=== PATIENT | female | born 1985 | race American Indian/Alaskan Native ===

== ENCOUNTER 2017-06-21 21:12 | Inpatient (IN) | payer MEDICAID, OTHER ==
[2017-06-21 21:13] VITALS: BMI 33.2
--- NOTE | 2017-06-21 22:52 | C.PDOC ---
History Of Present Illness Patient presents to the ER with a complaint of feeling depressed with suicidal ideation. She states that she has no plan. Patient also states she is homeless and notes she recently gave at the long term about 6 weeks ago. Denies physical complaints at this time. Time Seen by Provider: 06/21/17 22:51 Chief Complaint (Nursing): Psychiatric Evaluation History Per: Patient History/Exam Limitations: no limitations Onset/Duration Of Symptoms: Days Current Symptoms Are (Timing): Still Present Suicide/Self Injury Attempted (Context): None Modifying Factor(s): None Severity: None Pain Scale Rating Of: 0 Associated Symptoms: Depression, Suicidal Thoughts. denies: Suicidal Plan Involuntary Hold By: None Recent travel outside of the [place]: No Additional History Per: EMS Past Medical History Reviewed: Historical Data, Nursing Documentation, Vital Signs Vital Signs: Last Vital Signs Temp 98.5 F 06/21/17 21:26 Pulse 100 H 06/21/17 21:26 Resp 20 06/21/17 21:26 BP 144/93 H 06/21/17 21:26 Pulse Ox 100 06/21/17 23:58 - Medical History PMH: Anemia, Anxiety, Asthma, Bipolar Disorder, HTN (Unknown), Schizophrenia Comment Only: Depression (Unknown) Surgical History: - [facility] Procedures CERVICAL LES DESTRUC NEC (04/28/02) INDIVIDUAL PSYCHOTHERAPY, COGNITIVE-BEHAVIORAL (05/07/17) INJECT/INFUSE NEC (07/14/14) MEDICATION MANAGEMENT (07/23/16) PSYCHIA INTERV/EVAL NEC (05/27/14) VACUUM EXT DEL W EPISIOT (11/04/01) Family History: States: No Known Family Hx - Social History Hx Tobacco Use: Yes Hx Alcohol Use: Yes Hx Substance Use: Yes - Immunization History Hx Tetanus Toxoid Vaccination: No Hx Influenza Vaccination: No Hx Pneumococcal Vaccination: No Review Of Systems Constitutional: Negative for: Fever, Chills Cardiovascular: Negative for: Chest Pain Gastrointestinal: Negative for: Nausea, Vomiting, Diarrhea Genitourinary: Negative for: Dysuria Musculoskeletal: Negative for: Back Pain Skin: Negative for: Rash Neurological: Negative for: Weakness Psych: Positive for: Depression, Suicidal ideation Physical Exam - Physical Exam Appears: Non-toxic, No Acute Distress Skin: Warm, Dry Head: Normacephalic Eye(s): bilateral: Normal Inspection Oral Mucosa: Moist Neck: Supple Chest: Symmetrical, No Tenderness Cardiovascular: Rhythm Regular Respiratory: No Rales, No Rhonchi, No Wheezing Gastrointestinal/Abdominal: Soft, No Tenderness Extremity: No Tenderness Extremity: Bilateral: Atraumatic Neurological/Psych: Oriented x3 Gait: Steady ED Course And Treatment - Laboratory Results Result Diagrams: 06/21/17 22:50 06/21/17 22:50 O2 Sat by Pulse Oximetry: 100 Progress Note: Blood work and urinalysis ordered. Crisis notified. Disposition Discussed With Dr.: Ez Lazar Comment: accepted the pt on his service and took over the care at 11:49 PM Counseled Patient/Family Regarding: Studies Performed, Diagnosis - Disposition Disposition: HOSPITALIZED Disposition Time: 22:52 Condition: FAIR - POA Present On Arrival: None - Clinical Impression Clinical Impression: Schizoaffective disorder - Scribe Statement The provider has reviewed the documentation as recorded by the Scribe Sterling Walton All medical record entries made by the Scribe were at my direction and personally dictated by me. I have reviewed the chart and agree that the record accurately reflects my personal performance of the history, physical exam, medical decision making, and the department course for this patient. I have also personally directed, reviewed, and agree with the discharge instructions and disposition. Decision To Admit - Pt Status Changed To: Hospital Disposition Of: Inpatient - Admit Certification Admit to Inpatient:: After my assessment, the patient will require hospitalization for at least two midnights. This is because of the severity of symptoms shown, intensity of services needed, and/or the medical risk in this patient being treated as an outpatient. - InPatient: Physician Admission Certification: I certify that this patient requires 2 or more midnights of care for the following reason:: After my assessment, the patient will require hospitalization for at least two midnights. This is because of the severity of symptoms shown, intensity of services needed, and/or the medical risk in this patient being treated as an outpatient. - . Bed Request Type: Psychiatry Admitting Physician: Ez Lazar Patient Diagnosis: Schizoaffective disorder
[2017-06-21 22:53] LABS: BASO # 0.1 K/uL (0.0-0.2); BASO % 0.6 % (0.0-2.0); EOS # 0.1 K/uL (0.0-0.7); EOS % 1.2 % (0.0-4.0); HEMATOCRIT 29.1 % (34.0-47.0); LYMPH # 1.7 K/uL (1.0-4.3); LYMPH % 17.9 % (20.0-40.0); MEAN CELL VOLUME 72.5 fL (81.0-99.0); MEAN CORPUSCULAR HEMOGLOBIN 22.9 pg (27.0-31.0); MEAN CORPUSCULAR HGB CONC 31.5 g/dL (33.0-37.0); MEAN PLATELET VOLUME 8.4 fL (7.2-11.7); MONO # 0.6 K/uL (0.0-0.8); MONO % 6.2 % (0.0-10.0); NRBC % 0.1 % (0.0-2.0); RED CELL DISTRIBUTION WIDTH 19.5 % (11.5-14.5); WHITE BLOOD COUNT 9.4 K/uL (4.8-10.8)
[2017-06-21 23:01] LABS: CHLORIDE 102 mmol/L (98-107)
[2017-06-21 23:02] LABS: POTASSIUM 3.5 mmol/L (3.6-5.2); SODIUM 138 mmol/L (132-148)
[2017-06-21 23:03] LABS: RBC URINE 1 /hpf (0-3); URINE BILIRUBIN NEGATIVE (NEGATIVE); URINE BLOOD NEGATIVE (NEGATIVE); URINE COLOR Yellow (YELLOW); URINE GLUCOSE (UA) NORMAL (Normal); URINE KETONE NEGATIVE (NEGATIVE); URINE LEUKOCYTE ESTERASE TRACE Leu/uL (Negative); URINE PROTEIN NEGATIVE (NEGATIVE); WBC URINE 14 /hpf (0-5)
[2017-06-21 23:04] LABS: GFR AFRICAN-AMERICAN > 60
[2017-06-21 23:05] LABS: ALB/GLOB RATIO 1.3 (1.0-2.1); ALKALINE PHOSPHATASE 55 U/L (38-126); ALT/SGPT 45 U/L (9-52); AST/SGOT 32 U/L (14-36); BILIRUBIN,TOTAL 0.4 mg/dL (0.2-1.3); BLOOD UREA NITROGEN 10 mg/dL (7-17); CARBON DIOXIDE 22 mmol/L (22-30); GLUCOSE,RANDOM 86 mg/dL (65-105); TOTAL PROTEIN 6.8 g/dL (6.3-8.3)
[2017-06-21 23:06] LABS: ALCOHOL SERUM < 10 mg/dl (0-10)
--- NOTE | 2017-06-22 00:27 | PCM.BM ---
<Ila Calloway - Last Filed: 06/22/17 11:02> Family Contact Family involvement: Famliy/SO not involved - Goals for Treatment Patient goals for treatment: "I don't know." Discharge/Continuing Care - Education Needs Education Needs: Patient Medication, Patient Coping Skills, Patient Placement options, Patient Community resources - Discharge Discharge Criteria: Tolerates medication w/o severe side effects, Free of Suicidal thoughts, No longer exhibiting s/s of withdrawal, Reduction of target symptoms Discharge to:: Longterm - Treatment Team Participation Discussed with Family/SO: No Was Patient/Family/SO present at Treatment Team Meeting: Yes <Chaz Barry - Last Filed: 06/22/17 11:05> - Diagnosis (1) Schizoaffective disorder, depressive type Status: Acute Interventions: Medications [facility] for abstinence CBT 06/22/17 11:06 <Sanford Friedman - Last Filed: 07/03/17 04:37> Treatment Plan Problems - Problems identified on initial assessmt Depression Date Initiated: 06/22/17 Time Initiated: 00:24 Assessment reference: NA Status: Active Suicidal Ideation Date Initiated: 06/22/17 Time Initiated: 00:24 Assessment reference: NA Status: Active Comment: Suicidal Ideation w/o plan Auditory & Visual Hallucination Date Initiated: 06/22/17 Time Initiated: 00:28 Assessment reference: NA Status: Active Treatment assets and liabiliti Patient Assests: cooperative, self-reliant, ADL independent, physically healthy , good support system Patient Liabilities: financial problems, substance abuse - Milieu Protocol Maintain good personal hygiene: daily Encourage regular showers, daily Remind patient to perform daily oral care, daily Assist patient to perform ADL's Maintain personal safety: every shift Educate patient to report safety concerns to staff, every shift Monitor environment for contraband/sharps Medication safety: Monitor for expected outcome, potential side effects: every shift, Assess barriers to learning: every shift, Assess readiness for medication education: every shift
--- NOTE | 2017-06-22 17:59 | PCM.PSYCH ---
Initial Psychiatric Evaluation - Initial Psychiatric Evaluation Type of Admission: Voluntary Legal Status: Capacity Chief Complaint (in patient's own words): One day before I started having suicidal ideations without plan. History of Present Illness and Precipitating Events: Patient is a 31 years old, single, unemployed, -[place] female, with history of schizoaffective disorder depressive type, follow-up at [facility] was admitted due to worsening symptoms of depression and suicidal ideations without plan. Patient reported feeling depressed, with decreased sleep, feeling tired, no change in appetite but lost about 200 pounds over 2 months. Denied any current suicidal ideations or homicidal ideations. Denied any suicidal attempts in the past. Patient reported had suicidal ideations before admitting to the hospital. Also reported hearing voices, couldn't elaborate about voices. Sees things. Patient sees shadows. Also believed someone is after her. Denied any manic symptoms. History of more than 5 previous inpatient psychiatric admissions. Patient reports that she drinks 1 beer daily. Last drink reported yesterday. Denied using any other drugs including cocaine, cannabis or heroin. Smokes 3 cigarettes daily. Refuses to take nicotine patch. Patient was born in [place], has ninth grade of education. Not working. Never . Has one, one month for child. Patient's sister has custody of patient's son. Lives alone. Height is 5 feet 5 inches and weight is 180 pounds. Current Medications: Active Medications Generic Name Dose Route Start Last Admin Trade Name Freq PRN Reason Stop Dose Admin Benztropine Mesylate 1 mg 06/22/17 18:00 06/22/17 17:52 Cogentin PO 1 mg BID KONG Administration Haloperidol 10 mg 06/22/17 18:00 06/22/17 17:52 Haldol PO 10 mg BID KONG Administration Haloperidol 5 mg 06/22/17 13:11 Haldol PO Q6 PRN Agitation Hydroxyzine HCl 25 mg 06/22/17 17:53 Atarax PO Q6 PRN Anxiety Mirtazapine 15 mg 06/22/17 22:00 Remeron PO HS KONG Trazodone HCl 100 mg 06/22/17 00:49 06/22/17 00:58 Desyrel PO 100 mg HS PRN Administration Sleep Past Psychiatric History - Past Psychiatric History Previous Treatment History: Inpatient History of Abuse: None reported History of ETOH/Drug Use: See HPI History of Family Illness: Reported her mother has history of depression. Also reported many of her cousins use cannabis. Pertinent Medical Hx (Current Medical&Sleep Prob, Allergies): Allergies Allergy/AdvReac Type Severity Reaction Status Date / Time No Known Allergies Allergy Verified 05/07/17 02:39 Hypertension Review of Systems - Psychiatric Psychiatric: Depression Mental Status Examination - Personal Presentation Personal Presentation: Looks stated age - Affect Affect: Depressed - Motor Activity Motor Activity: Calm - Reliability in Providing Information Reliability in Providing Information: Fair - Speech Speech: Organized - Mood Mood: Depressed - Formal Thought Process Formal Thought Process: No Impairment - Hallucinations/Delusions Hallucinations: Other (None reported) Delusions: Other - Obsessions/Compulsions Obsessions: None Compulsions: None - Cognitive Functions Orientation: Person, Place, Situation, Time Sensorium: Alert Attention/Concentration: Attentive Abstract Thinking: [place] Estimate of Intelligence: Average Judgement: Intact, as evidence by: Insight regarding need for hospitalization Memory: Recent intact, as evidence by: 3/3 object recall, Remote intact, as evidenced by: Ability to recall historical events - Risk Risk: Diminished functioning - Strength & Assets Inventory Strength & Assets Inventory: Family support, Cooperative - Limitations Limitations: Other DSM 5 DX - DSM 5 DSM 5 Diagnosis: Schizoaffective disorder depressive type - Recommended/Plan of Treatment Treatment Recommendations and Plan of Treatment: Patient education Supportive therapy Will start Haldol as patient was taking from [facility] We'll start mirtazapine. Patient was taking this medication before. Other when necessary medications. Projected ELOS: 8-10 days - Smoking Cessation Smoking Cessation Initiated: No Reason for not providing: Patient refused
--- NOTE | 2017-06-23 18:41 | PCM.PYCHPN ---
Psychiatric Progress Note - Psychiatric Progress Note Patient seen today, length of contact: 15 minutes Patient Chief Complaint: "I'm hearing voices" Problems Identified/Issues Discussed: Patient was seen. Chart was reviewed important content noted. Nurse input received that she is still suspicious and internally preoccupied. Patient reported AH but unable to express further. She appeared internally preoccupied. Patient stated that he had trouble in slept. He stated that he is eating well. Patient denies any depressive symptoms. Denies suicidal or homicidal ideations. Patient does not report visual hallucinations. Diagnostic Results: Schizoaffective disorder Medication Change: No Medical Record Reviewed: Yes Mental Status Examination - Cognitive Function Orientation: Person, Place, Situation, Time Memory: Intact Attention: Poor Concentration: Poor Association: Loose Fund of Knowledge: WNL Decription of patient's judgement and insights: limited/limited - Mood Mood: Depressed - Affect Affect: Blunted - Speech Speech: Soft - Formal Thought Process Formal Thought Process: No Impairment Psychotic Thoughts and Behaviors: AH, Paranoid delusions - Suicidal Ideation Suicidal Ideation: No - Homicidal Ideation Homicidal Ideation: No Goal/Treatment Plan - Goal/Treatment Plan Need for Continued Stay: Discharge may exacerbated symptoms Progress Toward Problem(s) and Goals/Treatment Plan: Continue current treatment therapy in [facility] Meds benefits, s/e discussed with the pt and pt verbalized understanding and agree with the treatment plan. Encouraged to attend groups pt needs to stabilized on meds Estimated Date of D/C: 06/29/17
--- NOTE | 2017-06-24 18:36 | PCM.PYCHPN ---
Psychiatric Progress Note - Psychiatric Progress Note Patient seen today, length of contact: 15 minutes Patient Chief Complaint: "I'm feeling better" Problems Identified/Issues Discussed: Patient was seen. Chart was reviewed important content noted. Nurse input received that pt is compliant with meds. Pt is still suspicious and internally preoccupied. Patient reported AH telling her to do good things. She appeared internally preoccupied. Patient stated that he had trouble in slept. She stated that she is eating well. Patient reported depressed mood, but denies suicidal or homicidal ideation. Patient does not report visual hallucinations. Pt reported LD and MR history Diagnostic Results: Schizoaffective disorder Medication Change: No Medical Record Reviewed: Yes Mental Status Examination - Cognitive Function Orientation: Person, Place, Situation, Time Memory: Intact Attention: Poor Concentration: Poor Association: Loose Fund of Knowledge: Poor Decription of patient's judgement and insights: limited/limited - Mood Mood: Depressed - Affect Affect: Blunted - Speech Speech: Soft - Formal Thought Process Formal Thought Process: No Impairment Psychotic Thoughts and Behaviors: AH - Suicidal Ideation Suicidal Ideation: No - Homicidal Ideation Homicidal Ideation: No Goal/Treatment Plan - Goal/Treatment Plan Need for Continued Stay: Discharge may exacerbated symptoms Progress Toward Problem(s) and Goals/Treatment Plan: Continue current treatment therapy in [facility] Meds benefits, s/e discussed with the pt and pt verbalized understanding and agree with the treatment plan. Encouraged to attend groups pt needs to stabilized on meds Estimated Date of D/C: 06/29/17
--- NOTE | 2017-06-25 16:08 | PCM.PYCHPN ---
Psychiatric Progress Note - Psychiatric Progress Note Patient seen today, length of contact: 15 minutes Patient Chief Complaint: Not feeling better. I still hear voices. Problems Identified/Issues Discussed: Patient seen. Chart reviewed. Case discussed with staff. Issues related to illness and treatment were discussed with the patient. Reported compliant with treatment with no adverse affects. Tolerating treatment very well. Patient states supporting auditory hallucinations noncommand type. Appeared internally preoccupied. Will switch Haldol to Prolixin 10 mg at bedtime. At the time of evaluation, patient was awake alert oriented 3, had no delusions , no visual hallucinations but had auditory hallucinations, couldn't elaborate further, no suicidal ideations or homicidal ideations. Medical Problems: None reported Diagnostic Results: Reviewed DSM 5 Symptoms Update: Some improvement with treatment Medication Change: Yes (Discontinued Haldol. Started Prolixin 10 mg at bedtime.) Medical Record Reviewed: Yes Mental Status Examination - Cognitive Function Orientation: Person, Place, Situation, Time Memory: Intact Attention: WNL Concentration: WNL Association: WNL Fund of Knowledge: [facility] Decription of patient's judgement and insights: Fair - Mood Mood: Depressed - Affect Affect: Blunted - Speech Speech: Appropriate - Formal Thought Process Formal Thought Process: Hallucinations - Suicidal Ideation Suicidal Ideation: No - Homicidal Ideation Homicidal Ideation: No Goal/Treatment Plan - Goal/Treatment Plan Need for Continued Stay: Remain at risks for inpatient hospitalization, Discharge may exacerbated symptoms, Severe functional impairment Progress Toward Problem(s) and Goals/Treatment Plan: Patient education Supportive therapy Discontinued Haldol. Start Prolixin 10 mg at bedtime. Continue rest of the treatment as before. Estimated Date of D/C: 06/29/17 - Smoking Cessation Smoking Cessation Initiated: No
--- NOTE | 2017-06-26 18:14 | PCM.PYCHPN ---
Psychiatric Progress Note - Psychiatric Progress Note Patient seen today, length of contact: 15 minutes Patient Chief Complaint: I'm feeling better with the treatment Problems Identified/Issues Discussed: Patient seen. Chart reviewed. Case discussed with staff. Issues related to illness and treatment were discussed with the patient. Reported compliant with treatment with no adverse affects. Tolerating treatment very well. Patient reported feeling better with much less hallucinations. At the time of evaluation, patient was awake alert oriented 3, had no delusions , no visual hallucinations but had auditory hallucinations, couldn't elaborate further, no suicidal ideations or homicidal ideations. Medical Problems: None reported Diagnostic Results: Reviewed DSM 5 Symptoms Update: Improving with treatment Medication Change: No Medical Record Reviewed: Yes Mental Status Examination - Cognitive Function Orientation: Person, Place, Situation, Time Memory: Intact Attention: WNL Concentration: WNL Association: WNL Fund of Knowledge: [facility] Decription of patient's judgement and insights: Fair - Mood Mood: Depressed (Less than before) - Affect Affect: Blunted - Speech Speech: Appropriate - Formal Thought Process Formal Thought Process: Hallucinations - Suicidal Ideation Suicidal Ideation: No - Homicidal Ideation Homicidal Ideation: No Goal/Treatment Plan - Goal/Treatment Plan Need for Continued Stay: Remain at risks for inpatient hospitalization, Discharge may exacerbated symptoms, Severe functional impairment Progress Toward Problem(s) and Goals/Treatment Plan: Patient education Supportive therapy Continue treatment as before Estimated Date of D/C: 06/29/17 - Smoking Cessation Smoking Cessation Initiated: No
--- NOTE | 2017-06-27 15:28 | PCM.PYCHPN ---
Psychiatric Progress Note - Psychiatric Progress Note Patient seen today, length of contact: 15 minutes Patient Chief Complaint: I'm feeling better with the treatment Problems Identified/Issues Discussed: Patient seen. Chart reviewed. Case discussed with staff. Issues related to illness and treatment were discussed with the patient. Reported compliant with treatment with no adverse affects. Tolerating treatment very well. Patient reported feeling better. No hallucinations. At the time of evaluation, patient was awake alert oriented 3, had no delusions , no visual hallucinations but had auditory hallucinations, couldn't elaborate further, no suicidal ideations or homicidal ideations. Medical Problems: None reported Diagnostic Results: Reviewed DSM 5 Symptoms Update: Improvement with treatment Medication Change: No Medical Record Reviewed: Yes Mental Status Examination - Cognitive Function Orientation: Person, Place, Situation, Time Memory: Intact Attention: WNL Concentration: WNL Association: WN Fund of Knowledge: [facility] Decription of patient's judgement and insights: Fair - Mood Mood: Depressed (Much less than before) - Affect Affect: Depressed - Speech Speech: Appropriate - Formal Thought Process Formal Thought Process: No Impairment - Suicidal Ideation Suicidal Ideation: No - Homicidal Ideation Homicidal Ideation: No Goal/Treatment Plan - Goal/Treatment Plan Need for Continued Stay: Remain at risks for inpatient hospitalization, Discharge may exacerbated symptoms, Severe functional impairment Progress Toward Problem(s) and Goals/Treatment Plan: Patient education Supportive therapy Continue treatment as before Estimated Date of D/C: 06/29/17 - Smoking Cessation Smoking Cessation Initiated: No
[2017-06-27] MEDS ORDERED: Bisacodyl 5mg EC Tab PO PRN ×2 (20:10→20:17)
--- NOTE | 2017-06-28 14:40 | PCM.PYCHPN ---
Psychiatric Progress Note - Psychiatric Progress Note Patient seen today, length of contact: 15 minutes Patient Chief Complaint: I'm feeling better with the treatment. He is less voices. Problems Identified/Issues Discussed: Patient seen. Chart reviewed. Case discussed with staff. Issues related to illness and treatment were discussed with the patient. Reported compliant with treatment with no adverse affects. Tolerating treatment very well. Patient reported feeling better. Less hallucination, better mood. At the time of evaluation, patient was awake alert oriented 3, had no delusions , no visual hallucinations but had auditory hallucinations, couldn't elaborate further, no suicidal ideations or homicidal ideations. Medical Problems: None reported Diagnostic Results: Reviewed DSM 5 Symptoms Update: Improving with treatment Medication Change: Yes (Dose of mirtazapine increased to 30 mg at bedtime) Medical Record Reviewed: Yes Mental Status Examination - Cognitive Function Orientation: Person, Place, Situation, Time Memory: Intact Attention: WNL Concentration: WNL Association: WNL Fund of Knowledge: WNL Decription of patient's judgement and insights: Fair - Mood Mood: Anxious - Affect Affect: Constricted - Speech Speech: Appropriate - Formal Thought Process Formal Thought Process: Hallucinations - Suicidal Ideation Suicidal Ideation: No - Homicidal Ideation Homicidal Ideation: No Goal/Treatment Plan - Goal/Treatment Plan Need for Continued Stay: Remain at risks for inpatient hospitalization, Discharge may exacerbated symptoms, Severe functional impairment Progress Toward Problem(s) and Goals/Treatment Plan: Patient education Supportive therapy Dose of mirtazapine increased to 30 mg Continue rest of the treatment as before Estimated Date of D/C: 07/02/17 - Smoking Cessation Smoking Cessation Initiated: No
--- NOTE | 2017-06-29 10:19 | PCM.BM ---
<ElliIla - Last Filed: 06/29/17 10:18> Treatment Plan Problems - Problems identified on initial assessmt Depression Date Initiated: 06/22/17 Time Initiated: 00:24 Assessment reference: NA Status: Active Suicidal Ideation Date Initiated: 06/22/17 Time Initiated: 00:24 Assessment reference: NA Status: Active Comment: Suicidal Ideation w/o plan Substance Abuse Date Initiated: 06/22/17 Time Initiated: 00:25 Assessment reference: NA Status: Active Auditory & Visual Hallucination Date Initiated: 06/22/17 Time Initiated: 00:28 Assessment reference: NA Status: Active Treatment assets and liabiliti Patient Assests: cooperative, self-reliant, ADL independent, physically healthy , good support system Patient Liabilities: financial problems, substance abuse - Milieu Protocol Maintain good personal hygiene: daily Encourage regular showers, daily Remind patient to perform daily oral care, daily Assist patient to perform ADL's Maintain personal safety: every shift Educate patient to report safety concerns to staff, every shift Monitor environment for contraband/sharps Medication safety: Monitor for expected outcome, potential side effects: every shift, Assess barriers to learning: every shift, Assess readiness for medication education: every shift Milieu Narrative: Patient education Supportive therapy Dose of mirtazapine increased to 30 mg Continue rest of the treatment as before Family Contact Family involvement: Famliy/SO not involved - Goals for Treatment Patient goals for treatment: "I don't know." Discharge/Continuing Care - Education Needs Education Needs: Patient Medication, Patient Coping Skills, Patient Placement options, Patient Community resources - Discharge Discharge Criteria: Tolerates medication w/o severe side effects, Free of Suicidal thoughts, No longer exhibiting s/s of withdrawal, Reduction of target symptoms Discharge to:: Longterm - Treatment Team Participation Patient/Family/SO Statement: Patient education Supportive therapy Dose of mirtazapine increased to 30 mg Continue rest of the treatment as before Discussed with Family/SO: No Was Patient/Family/SO present at Treatment Team Meeting: Yes Treatment Plan Review Patient participation: No Family/SO/Caregiver participation: No - Problem Depression Date Initiated: 06/29/17 Time Initiated: 10:19 Progress toward outcomes: unchanged Suicidal Ideation Date Initiated: 06/29/17 Time Initiated: 10:19 Progress toward outcomes: unchanged Substance Abuse Date Initiated: 06/29/17 Time Initiated: 10:19 Progress toward outcomes: improved Auditory & Visual Hallucination Date Initiated: 06/29/17 Time Initiated: 10:19 Progress toward outcomes: unchanged <Hetal Coleman - Last Filed: 06/29/17 15:04> Treatment Plan Review - Discharge / Continuing Care Discharge to:: Home Behavioral Health Services: Partial hospital Health Needs: Medications/Rx, Educational <Chaz Barry - Last Filed: 06/29/17 18:32> - Diagnosis (1) Schizoaffective disorder, depressive type Status: Acute Interventions: Medications ND for abstinence CBT 06/29/17 18:32
--- NOTE | 2017-06-29 18:38 | PCM.PYCHPN ---
Psychiatric Progress Note - Psychiatric Progress Note Patient seen today, length of contact: 15 minutes Patient Chief Complaint: I'm still hearing voices. Problems Identified/Issues Discussed: Patient seen. Chart reviewed. Case discussed with staff. Issues related to illness and treatment were discussed with the patient. Reported compliant with treatment with no adverse affects. Tolerating treatment very well. Patient reported that she still hears voices and also depressed. Patient is not comfortable with fluphenazine and wants to use Haldol. Patient repeatedly insisted that Haldol helped her better. Education provided to the patient about medication. Still patient wants Haldol. Will start haloperidol 10 mg twice a day and will discontinue fluphenazine. We'll also increase the dose of mirtazapine to 45 mg from 30 mg at bedtime. Patient agreed with the changes. At the time of evaluation, patient was awake alert oriented 3, had no delusions , no visual hallucinations but had auditory hallucinations, couldn't elaborate further, no suicidal ideations or homicidal ideations. Medical Problems: None reported Diagnostic Results: Reviewed DSM 5 Symptoms Update: Some improvement with treatment Medication Change: Yes (Started haloperidol, increase the dose of mirtazapine, discontinued fluphen) Medical Record Reviewed: Yes Mental Status Examination - Cognitive Function Orientation: Person, Place, Situation, Time Memory: Intact Attention: WNL Concentration: WNL Association: WNL Fund of Knowledge: [facility] Decription of patient's judgement and insights: Yefri - Mood Mood: Anxious - Affect Affect: Constricted - Speech Speech: Appropriate - Formal Thought Process Formal Thought Process: Hallucinations - Suicidal Ideation Suicidal Ideation: No - Homicidal Ideation Homicidal Ideation: No Goal/Treatment Plan - Goal/Treatment Plan Need for Continued Stay: Remain at risks for inpatient hospitalization, Discharge may exacerbated symptoms, Severe functional impairment Progress Toward Problem(s) and Goals/Treatment Plan: Patient education Supportive therapy Increased dose of mirtazapine to 45 mg. Discontinued fluphenazine. Start haloperidol 10 mg twice a day. Estimated Date of D/C: 07/02/17 - Smoking Cessation Smoking Cessation Initiated: No
--- NOTE | 2017-06-30 11:49 | PCM.PYCHPN ---
Psychiatric Progress Note - Psychiatric Progress Note Patient seen today, length of contact: 15 minutes Patient Chief Complaint: "I hear voices sometimes" Problems Identified/Issues Discussed: The pt is seen, chart reviewed, case discussed with staff. The pt is compliant with medications and reports no side-effects. Symptoms are improving but needs more time to stabilize. After care discussed, support and psychoeducation given. Pt needs depot medication, will do tomorrow She also needs [facility] or a good [facility] [place] [place] IDT Medication Change: No Medical Record Reviewed: Yes Mental Status Examination - Cognitive Function Orientation: Person, Place, Situation, Time Memory: Intact Attention: WNL Concentration: Poor Association: WNL Fund of Knowledge: WNL - Mood Mood: Anxious - Affect Affect: Blunted - Speech Speech: Appropriate - Formal Thought Process Formal Thought Process: Hallucinations - Suicidal Ideation Suicidal Ideation: No - Homicidal Ideation Homicidal Ideation: No Goal/Treatment Plan - Goal/Treatment Plan Need for Continued Stay: Remain at risks for inpatient hospitalization, Discharge may exacerbated symptoms, Severe functional impairment Progress Toward Problem(s) and Goals/Treatment Plan: Continue medications Support and psychoeducation daily Attend groups and activities daily After care planning by ERWIN Estimated Date of D/C: 07/04/17
--- NOTE | 2017-07-01 13:08 | PCM.PYCHPN ---
Psychiatric Progress Note - Psychiatric Progress Note Patient seen today, length of contact: 15 minutes Patient Chief Complaint: "I am not well" Problems Identified/Issues Discussed: The pt is seen, chart reviewed, case discussed with staff. Support given, CBT and WA used briefly No SEs from meds - agreed with josé luis Nichols - will obtain tomorrow No new symptoms reported, improving slowly and needs more time No SEs from medications, risks discussed. After care discussed, she needs [facility] or a good [facility] IDT Medication Change: No Medical Record Reviewed: Yes Mental Status Examination - Cognitive Function Orientation: Person, Place, Situation, Time Memory: Intact Attention: WNL Concentration: Poor Association: WNL Fund of Knowledge: WNL - Mood Mood: Anxious - Affect Affect: Blunted - Speech Speech: Appropriate - Formal Thought Process Formal Thought Process: Hallucinations - Suicidal Ideation Suicidal Ideation: No - Homicidal Ideation Homicidal Ideation: No Goal/Treatment Plan - Goal/Treatment Plan Need for Continued Stay: Remain at risks for inpatient hospitalization, Discharge may exacerbated symptoms, Severe functional impairment Progress Toward Problem(s) and Goals/Treatment Plan: Continue medications Start Abilifmarlyn and then given José Luis Nichols Support and psychoeducation daily Attend groups and activities daily After care planning by ERWIN SHARMA Estimated Date of D/C: 07/04/17
[2017-07-02 07:27] VITALS: O2SAT 99
--- NOTE | 2017-07-02 14:53 | PCM.PYCHPN ---
Psychiatric Progress Note - Psychiatric Progress Note Patient seen today, length of contact: 15 minutes Patient Chief Complaint: I'm feeling little better. Mood is better but I still hear voices. Problems Identified/Issues Discussed: Patient seen. Chart reviewed. Case discussed with staff. Issues related to illness and treatment were discussed with the patient. Reported compliant with treatment with no adverse affects. Tolerating treatment very well. Patient reported that she still hears voices. We will increase the dose of Haldol to 10 mg twice a day as patient reported that Haldol helped her the best. Also offered Haldol Decanoate. Patient understood and agreed. We will provide first injection of Haldol Decanoate 50 mg today. At the time of evaluation, patient was awake alert oriented 3, had no delusions , no visual hallucinations but had auditory hallucinations, couldn't elaborate further, no suicidal ideations or homicidal ideations. Medical Problems: None reported Diagnostic Results: Reviewed DSM 5 Symptoms Update: Improving with treatment Medication Change: Yes (Dose of Haldol increased to 10 mg twice a day, also injection Haldol Decano) Medical Record Reviewed: Yes Mental Status Examination - Cognitive Function Orientation: Person, Place, Situation, Time Memory: Intact Attention: WNL Concentration: WNL Association: WNL Fund of Knowledge: [facility] Decription of patient's judgement and insights: Fair - Mood Mood: Other - Affect Affect: Blunted - Speech Speech: Appropriate - Formal Thought Process Formal Thought Process: Hallucinations - Suicidal Ideation Suicidal Ideation: No - Homicidal Ideation Homicidal Ideation: No Goal/Treatment Plan - Goal/Treatment Plan Need for Continued Stay: Remain at risks for inpatient hospitalization, Discharge may exacerbated symptoms, Severe functional impairment Progress Toward Problem(s) and Goals/Treatment Plan: Patient education Supportive therapy Will increase the dose of Haldol to 10 mg twice a day. We will also start Haldol Decanoate 50 mg, intramuscular, every 4 weeks. Continue rest of the treatment as before. Estimated Date of D/C: 07/04/17 - Smoking Cessation Smoking Cessation Initiated: No
[2017-07-03] MEDS ORDERED: Patient's Own Injectable IM SCH (10:00)
--- NOTE | 2017-07-03 16:22 | PCM.PYCHPN ---
Psychiatric Progress Note - Psychiatric Progress Note Patient seen today, length of contact: 15 minutes Patient Chief Complaint: I'm feeling much better. Problems Identified/Issues Discussed: Patient seen. Chart reviewed. Case discussed with staff. Issues related to illness and treatment were discussed with the patient. Reported compliant with treatment with no adverse affects. Tolerating treatment very well. Reported feeling much better. Patient got injection Haldol Decanoate 50 mg yesterday. Patient reported that hallucinations in intensity of hallucinations is 75% less. At the time of evaluation, patient was awake alert oriented 3, had no delusions , no visual hallucinations but had auditory hallucinations, couldn't elaborate further, no suicidal ideations or homicidal ideations. Medical Problems: None reported Diagnostic Results: Reviewed DSM 5 Symptoms Update: Improving with treatment Medication Change: No Medical Record Reviewed: Yes Mental Status Examination - Cognitive Function Orientation: Person, Place, Situation, Time Memory: Intact Attention: WNL Concentration: WNL Association: WN Fund of Knowledge: [facility] Decription of patient's judgement and insights: Fair - Mood Mood: Other (Better) - Affect Affect: Blunted - Speech Speech: Appropriate - Formal Thought Process Formal Thought Process: Hallucinations (Much less than before) - Suicidal Ideation Suicidal Ideation: No - Homicidal Ideation Homicidal Ideation: No Goal/Treatment Plan - Goal/Treatment Plan Need for Continued Stay: Remain at risks for inpatient hospitalization, Discharge may exacerbated symptoms, Severe functional impairment Progress Toward Problem(s) and Goals/Treatment Plan: Patient education Supportive therapy Continue treatment as before. Estimated Date of D/C: 07/04/17 - Smoking Cessation Smoking Cessation Initiated: No
--- NOTE | 2017-07-04 15:09 | PCM.PYCHPN ---
Psychiatric Progress Note - Psychiatric Progress Note Patient seen today, length of contact: 15 minutes Patient Chief Complaint: I'm feeling much better. Problems Identified/Issues Discussed: Patient seen. Chart reviewed. Case discussed with staff. Issues related to illness and treatment were discussed with the patient. Reported compliant with treatment with no adverse affects. Tolerating treatment very well. Reported feeling much better. Patient got injection Haldol Decanoate 50 mg. we' ll give another dose of injection Haldol Decanoate 50 mg today. Patient reported decrease in intensity of hallucinations by 75%. At the time of evaluation, patient was awake alert oriented 3, had no delusions , no visual hallucinations but had auditory hallucinations, couldn't elaborate further, no suicidal ideations or homicidal ideations. Medical Problems: None reported Diagnostic Results: Reviewed DSM 5 Symptoms Update: Improvement with treatment Medication Change: Yes (Haldol Decanoate 50 mg) Medical Record Reviewed: Yes Mental Status Examination - Cognitive Function Orientation: Person, Place, Situation, Time Memory: Intact Attention: WNL Concentration: WNL Association: WN Fund of Knowledge: [facility] Decription of patient's judgement and insights: Fair - Mood Mood: Other (Better) - Affect Affect: Blunted - Speech Speech: Appropriate - Formal Thought Process Formal Thought Process: Hallucinations (Much less than before) - Suicidal Ideation Suicidal Ideation: No - Homicidal Ideation Homicidal Ideation: No Goal/Treatment Plan - Goal/Treatment Plan Need for Continued Stay: Remain at risks for inpatient hospitalization, Discharge may exacerbated symptoms, Severe functional impairment Progress Toward Problem(s) and Goals/Treatment Plan: Patient education Supportive therapy Injection Haldol Decanoate 50 mg Continue rest of the treatment as before. Estimated Date of D/C: 07/06/17 - Smoking Cessation Smoking Cessation Initiated: No
[2017-07-04 16:14] VITALS: RESP 18
[2017-07-05 07:31] VITALS: BP 108/71; PULSE 62; TEMP 97.6
--- NOTE | 2017-07-05 17:03 | PCM.PYCHDC ---
Mental Status Examination - Mental Status Examination Orientation: Person, Place, Situation, Time Memory: Intact Mood: Neutral Affect: Other Attention: WNL Concentration: WNL Association: WNL Fund of Knowledge: WNL Formal Thought Process: No Impairment Description of patient's judgement and insight: Fair Psychotic Thoughts and Behaviors: None Suicidal Ideation: No Current Homicidal Ideation?: No Discharge Summary - Discharge Note Reason for Hospitalization: Schizoaffective disorder Laboratory Data: Reviewed Consultations:: List each consultation separately and include: 1. Reason for request. 2. Findings. 3. Follow-up Summary of Hospital Course include:: 1. Description of specific treatment plan utilized for patients during their course of treatmen. 2. Summarize the time- course for resolution of acute symptoms and/or regressed behaviors. 3. Describe issues identified and worked on during hospitalization. 4. Describe medication utilized. 5. Describe medical problems identified and treated. 6. Reassessment of suicide risk Summary of Hospital Course: Patient is a 31 years old, single, unemployed, -[place] female, with history of schizoaffective disorder depressive type, follow-up at [facility] was admitted due to worsening symptoms of depression and suicidal ideations without plan. Patient reported feeling depressed, with decreased sleep, feeling tired, no change in appetite but lost about 200 pounds over 2 months. Denied any current suicidal ideations or homicidal ideations. Denied any suicidal attempts in the past. Patient reported had suicidal ideations before admitting to the hospital. Also reported hearing voices, couldn't elaborate about voices. Sees things. Patient sees shadows. Also believed someone is after her. Denied any manic symptoms. History of more than 5 previous inpatient psychiatric admissions. Patient reports that she drinks 1 beer daily. Last drink reported yesterday. Denied using any other drugs including cocaine, cannabis or heroin. Smokes 3 cigarettes daily. Refuses to take nicotine patch. Patient was born in [place], has ninth grade of education. Not working. Never . Has one, one month for child. Patient's sister has custody of patient's son. Lives alone. Height is 5 feet 5 inches and weight is 180 pounds. During her stay in the hospital patient was treated with Haldol, which was changed to fluphenazine. Fluphenazine was discontinued and again started Haldol as Haldol helped the patient the most. Patient also received Haldol decanoate. Patient also attending groups and other activities on the unit. With the above treatment patient started feeling better. Today patient was stable and ready for discharge. At the time of evaluation and discharge, patient was awake alert oriented 3, had no delusions, no auditory or visual hallucinations, no suicidal ideations or homicidal ideations. Patient was discharged in a stable condition. - Diagnosis (1) Schizoaffective disorder, depressive type Status: Acute - Final Diagnosis (DSM 5) Condition upon Discharge: FAIR Disposition: HOME/ ROUTINE Follow-up Treatment Plan: [facility], [facility] Prescriptions/Medication Reconciliation: Benztropine [Cogentin] 1 mg PO BID #60 tab Haloperidol [Haldol] 10 mg PO BID #60 tab Mirtazapine [Remeron] 45 mg PO HS #30 tab traZODone [Desyrel] 100 mg PO HS PRN #30 tab PRN Reason: Sleep - Smoking Cessation Smoking Cessation Medication prescribed: No - Antipsychotic Medications Pt discharged on 2 or more routine antipsychotic medications: No
== END 2017-07-05 11:20 | disposition home or self-care (01) | DRG 430 ==
LOC: C.ER 21:12 → C.5E 23:48
PROVIDERS: ADMIT Psychiatry & Neurology Psychiatry; ATTEND Psychiatry & Neurology Psychiatry
DX: F25.1 Schizoaffective disorder, depressive type (principal); I10 Essential (primary) hypertension; J45.909 Unspecified asthma, uncomplicated; F17.210 Nicotine dependence, cigarettes, uncomplicated

== ENCOUNTER 2017-07-29 20:53 | Inpatient (IN) | payer MEDICAID ==
[2017-07-29 20:54] VITALS: BMI 33.2
--- NOTE | 2017-07-29 21:12 | C.PDOC ---
History Of Present Illness 31 year old female with history of schizophrenia, hypertension, and diabetes presents to the ED for evaluation of suicidal ideation with plan since yesterday. She states that her plan is to drink herself to and admits to alcohol use today. Patient reports multiple recent psychiatric admissions. In April, the patient delivered a baby while living at half-way and she did not have any care. She was admitted to [facility] and then here for depression with suicidal ideation. She was discharged in mid June and supposed to be on Haldol but she has not been compliant. She is not on medications for any of her other medical problems either. Time Seen by Provider: 07/29/17 21:04 Chief Complaint (Nursing): Psychiatric Evaluation History Per: Patient History/Exam Limitations: intoxication Onset/Duration Of Symptoms: Days Current Symptoms Are (Timing): Still Present Modifying Factor(s): Alcohol Associated Symptoms: Depression, Suicidal Thoughts, Suicidal Plan Past Medical History Reviewed: Historical Data, Nursing Documentation, Vital Signs Vital Signs: Last Vital Signs Temp 98.1 F 07/29/17 22:05 Pulse 92 H 07/29/17 22:05 Resp 16 07/29/17 22:05 BP 135/86 07/29/17 22:05 Pulse Ox 100 07/29/17 22:05 - Medical History PMH: Anemia, Anxiety, Asthma, Bipolar Disorder, Depression, HTN (NO MEDS PER PT) , Schizophrenia Denies: Diabetes, Hepatitis, HIV, Chronic Kidney Disease, Seizures, Sexually Transmitted Disease Surgical History: - [facility] Procedures CERVICAL LES DESTRUC NEC (04/28/02) INDIVIDUAL PSYCHOTHERAPY, COGNITIVE-BEHAVIORAL (05/07/17) INJECT/INFUSE NEC (07/14/14) MEDICATION MANAGEMENT (07/23/16) PSYCHIA INTERV/EVAL NEC (05/27/14) VACUUM EXT DEL W EPISIOT (11/04/01) Family History: States: Unknown Family Hx - Social History Hx Tobacco Use: Yes Hx Alcohol Use: Yes Hx Substance Use: No - Immunization History Hx Tetanus Toxoid Vaccination: No Hx Influenza Vaccination: No Hx Pneumococcal Vaccination: No Review Of Systems Psych: Positive for: Depression, Suicidal ideation, Other (Schizophrenia) Physical Exam - Physical Exam Appears: Non-toxic, No Acute Distress Skin: Normal Color, Warm, Dry Head: Atraumatic, Normacephalic Eye(s): bilateral: Normal Inspection Neck: Normal ROM, Supple Cardiovascular: Rhythm Regular (Rate Regular) Respiratory: Normal Breath Sounds (Clear to ascultation bilaterally ) Gastrointestinal/Abdominal: Soft, No Tenderness Extremity: No Pedal Edema, No Deformity Neurological/Psych: Oriented x3 ED Course And Treatment - Laboratory Results Result Diagrams: 07/29/17 21:21 07/29/17 21:21 Lab Interpretation: No Acute Changes O2 Sat by Pulse Oximetry: 100 Pulse Ox Interpretation: Normal Reevaluation Time: 22:40 Reassessment Condition: Improved (Patient remains comfortable in ED.) - Physician Consult Information Outcome Of Conversation: Case reviewed by Dr Lazar. Patient to be admitted for psychiatric observation. Disposition - Disposition Disposition: HOSPITALIZED Disposition Time: 22:41 Condition: STABLE - POA Present On Arrival: None - Clinical Impression Clinical Impression: Suicidal ideation, Schizophrenia, Depression - Scribe Statement The provider has reviewed the documentation as recorded by the Scribe Jorgito Hughes Provider Attestation: All medical record entries made by the Scribe were at my direction and personally dictated by me. I have reviewed the chart and agree that the record accurately reflects my personal performance of the history, physical exam, medical decision making, and the department course for this patient. I have also personally directed, reviewed, and agree with the discharge instructions and disposition.
[2017-07-29 21:33] LABS: BASO # 0.1 K/uL (0.0-0.2); BASO % 1.1 % (0.0-2.0); EOS % 0.4 % (0.0-4.0); HEMATOCRIT 31.4 % (34.0-47.0); LYMPH # 2.7 K/uL (1.0-4.3); LYMPH % 22.3 % (20.0-40.0); MEAN CELL VOLUME 69.6 fL (81.0-99.0); MEAN CORPUSCULAR HEMOGLOBIN 21.8 pg (27.0-31.0); MEAN CORPUSCULAR HGB CONC 31.3 g/dL (33.0-37.0); MEAN PLATELET VOLUME 7.6 fL (7.2-11.7); MONO # 0.5 K/uL (0.0-0.8); MONO % 4.4 % (0.0-10.0); RED CELL DISTRIBUTION WIDTH 20.8 % (11.5-14.5); WHITE BLOOD COUNT 11.9 K/uL (4.8-10.8)
[2017-07-29 21:41] LABS: CHLORIDE 103 mmol/L (98-107); POTASSIUM 3.6 mmol/L (3.6-5.2); SODIUM 136 mmol/L (132-148)
[2017-07-29 21:42] LABS: RBC URINE < 1 /hpf (0-3); URINE BILIRUBIN NEGATIVE (NEGATIVE); URINE BLOOD NEGATIVE (NEGATIVE); URINE COLOR Yellow (YELLOW); URINE GLUCOSE (UA) NORMAL (Normal); URINE KETONE NEGATIVE (NEGATIVE); URINE LEUKOCYTE ESTERASE NEG Leu/uL (Negative); URINE PROTEIN NEGATIVE (NEGATIVE); URINE UROBILINOGEN NORMAL mg/dL (0.2-1.0); WBC URINE 1 /hpf (0-5)
[2017-07-29 21:43] LABS: BILIRUBIN,TOTAL 0.2 mg/dL (0.2-1.3); CARBON DIOXIDE 22 mmol/L (22-30); GFR AFRICAN-AMERICAN > 60
[2017-07-29 21:44] LABS: ALB/GLOB RATIO 1.1 (1.0-2.1); ALKALINE PHOSPHATASE 69 U/L (38-126); ALT/SGPT 34 U/L (9-52); AST/SGOT 24 U/L (14-36); BLOOD UREA NITROGEN 10 mg/dL (7-17); CALCIUM 8.9 mg/dl (8.6-10.4); GLUCOSE,RANDOM 81 mg/dL (65-105); TOTAL PROTEIN 8.1 g/dL (6.3-8.3)
[2017-07-29 21:45] LABS: ALCOHOL SERUM < 10 mg/dl (0-10)
--- NOTE | 2017-07-30 00:07 | PCM.BM ---
<HeathermahiJeimy - Last Filed: 07/30/17 00:05> Treatment Plan Problems - Problems identified on initial assessmt Depression Date Initiated: 07/30/17 Time Initiated: 00:05 Assessment reference: NA Status: Active Priority: 1 Suicidal Ideation Date Initiated: 07/30/17 (with plan: OD on alcohol) Time Initiated: 00:05 Assessment reference: NA Status: Active Priority: 2 Treatment assets and liabiliti Patient Assests: cooperative, self-reliant, ADL independent, physically healthy , good support system, negotiates basic needs Patient Liabilities: financial problems, relationship conflicts, substance abuse , other (Cognitive function; impaired) - Milieu Protocol Maintain good personal hygiene: daily Encourage regular showers, daily Remind patient to perform daily oral care Maintain personal safety: daily Educate patient to report safety concerns to staff (prn), other Monitor environment for contraband/sharps (q15min) Medication safety: Monitor for expected outcome, potential side effects: every shift, Assess barriers to learning: every shift, Assess readiness for medication education: every shift <Astrid Torres - Last Filed: 07/30/17 11:17> - Diagnosis (1) Schizophrenia Status: Acute Interventions: 07/30/17 11:17 * Assess 7x/week regarding severity of withdrawal * Educate regarding risks, benefits, side effects and alternatives of medications * Use Motivational Interviewing for abstinence * Use CBT for relapse prevention * Medication management for withdrawal symptoms * Encourage medication assisted treatment * (2) Alcohol use disorder, severe, dependence Status: Acute Interventions: 07/30/17 11:17 * Assess 7x/week regarding severity of withdrawal * Educate regarding risks, benefits, side effects and alternatives of medications * Use Motivational Interviewing for abstinence * Use CBT for relapse prevention * Medication management for withdrawal symptoms * Encourage medication assisted treatment * <Ila Calloway - Last Filed: 07/30/17 11:19> Family Contact Family involvement: Famliy/SO not involved - Goals for Treatment Patient goals for treatment: "I don't know." Discharge/Continuing Care - Education Needs Education Needs: Patient Medication, Patient Coping Skills, Patient Placement options, Patient Community resources - Discharge Discharge Criteria: Tolerates medication w/o severe side effects, No longer exhibiting s/s of withdrawal, Reduction of target symptoms Discharge to:: Care Home - Treatment Team Participation Discussed with Family/SO: No Was Patient/Family/SO present at Treatment Team Meeting: Yes
--- NOTE | 2017-07-30 10:04 | PCM.PSYCH ---
Initial Psychiatric Evaluation - Initial Psychiatric Evaluation Type of Admission: Voluntary Legal Status: Capacity Chief Complaint (in patient's own words): "I feel suicidal for some reason" History of Present Illness and Precipitating Events: Patient is a 31 years old, single, unemployed, -Central African female, with history of schizoaffective disorder depressive type, follow-up at [facility] was admitted due to worsening symptoms of depression and suicidal ideations without plan. She currently presents with suicidal ideations and auditory hallucinations that tell her to harm and kill herself. Patient was last seen on 06/21/2017. During that admission patient reported suicidal ideation and depression with no plan. Later, Patient was reported to have changed her story and report plan to overdose using heroin. Patent's BAL was 31. Patient denied auditory/ visual hallucinations. Patient has history of alcohol use, heroin use and marijuana use. It was recommended that patient attend [facility] outpatient, however, Patient does not participate in the program. Patient has history of being prescirbed haldol. After latest discharge patient stated she began drinking again. She initially reports that she drinks 4 shots a day but later said she drinks 2 pints a day. Denied using any other drugs including cocaine, cannabis or heroin. Patient was born in [place], has ninth grade of education. Not working. Never . Has one, one month for child. Patient's sister has custody of patient's son. Lives alone. Height is 5 feet 5 inches and weight is 180 pounds. Battery [employer] contacted Patient's grandmother who was very annoyed by phone call. Patient's grandmother stated "she's playing you all. Shana is drinking. She left her mother's where she had a place to stay. She won't do the right thing and right now there is no hope for her. She's using the system because she does' t want to do the right thing." Patient stated she was kicked out of her mother' s house by her mother because her mother was fighting with her boyfriend. Patient's grandmother refused to provide contact information for additional information from Patient's mother or sister, Amina. 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 Patient is a poor historian as noted by disorganized thoughts. Current Medications: Active Medications Generic Name Dose Route Start Last Admin Trade Name Freq PRN Reason Stop Dose Admin Benztropine Mesylate 1 mg 07/30/17 10:00 07/30/17 09:38 Cogentin PO Not Given BID KONG Haloperidol 5 mg 07/30/17 10:00 07/30/17 09:38 Haldol PO Not Given BID KONG Hydroxyzine HCl 50 mg 07/29/17 23:29 Atarax PO Q6H PRN Anxiety Ibuprofen 600 mg 07/29/17 23:29 Motrin Tab PO Q6H PRN Pain, moderate (4-7) Mirtazapine 30 mg 07/29/17 23:30 07/30/17 00:00 Remeron PO 30 mg HS KONG Administration Trazodone HCl 100 mg 07/29/17 23:29 07/30/17 00:00 Desyrel PO 100 mg HS PRN Administration Insomnia Past Psychiatric History - Past Psychiatric History Pertinent Medical Hx (Current Medical&Sleep Prob, Allergies): Allergies Allergy/AdvReac Type Severity Reaction Status Date / Time No Known Allergies Allergy Verified 07/29/17 21:05 No Known Home Med 07/29/17 Review of Systems - Psychiatric Psychiatric: Abnormal Sleep Pattern, Auditory Hallucinations, Depression, Homicidal Ideation, Suicidal Ideation. absent: Visual Hallucinations Mental Status Examination - Personal Presentation Personal Presentation: Looks stated age - Affect Affect: Blunted - Motor Activity Motor Activity: Calm - Reliability in Providing Information Reliability in Providing Information: Fair - Speech Speech: Disorganized - Formal Thought Process Formal Thought Process: Hallucinations, Delusions, Paranoia - Hallucinations/Delusions Hallucinations: Auditory - Cognitive Functions Orientation: Person, Place Sensorium: Lethargic Estimate of Intelligence: Average Judgement: Imparied, as evidence by: Lack of insight into illness Memory: Recent intact, as evidence by: Ability to recall events of the day, Remote intact, as evidenced by: Abilit to recall sig. life events - Risk Risk: Suicidal, Diminished functioning - Limitations Limitations: Living alone DSM 5 DX - DSM 5 DSM 5 Diagnosis: Schizoeffective disorder depressive type - Recommended/Plan of Treatment Treatment Recommendations and Plan of Treatment: Start: Haldol 5mg PO BID Cogentin 1mg PO BID atarax 50 mg. PRN Q6 Mertazipine 30 mg PO HS KONG Trazodone 100 mg PO HS KONG Attend groups and activities Individual therapy Psychoeducation and support Encourage compliance with meds and after care Refer to outpatient program Teach healthy lifestyle methods, i.e. diet, exercise, meditation Smoking cessation 33 minutes Projected ELOS: 7-8 days Prognosis: good with treatment
--- NOTE | 2017-07-31 10:10 | PCM.PYCHPN ---
Psychiatric Progress Note - Psychiatric Progress Note Patient seen today, length of contact: 16 min Patient Chief Complaint: "I feel suicidal for some reason" Problems Identified/Issues Discussed: Patient seen and evaluated, chart reviewed and discussed with the nurse. Patient remained disorganized and internally preoccupied. Patient remained isolated, confined and withdrawn. She still reports of hearing voices and still appears paranoid and delusional. She reports depressed mood and feelings of hopelessness and helplessness. She is taking meds and denies any side effects. She needs more time for stabilization. Supportive therapy and psychoeducation were given. Medication Change: No Medical Record Reviewed: Yes Mental Status Examination - Cognitive Function Orientation: Person, Place Memory: Intact Attention: WNL Concentration: Poor Association: Loose Fund of Knowledge: Poor - Mood Mood: Depressed, Anxious - Affect Affect: Constricted, Depressed - Speech Speech: Soft - Formal Thought Process Formal Thought Process: Hallucinations, Delusions, Paranoia - Suicidal Ideation Suicidal Ideation: No - Homicidal Ideation Homicidal Ideation: No Goal/Treatment Plan - Goal/Treatment Plan Need for Continued Stay: Discharge may exacerbated symptoms, Severe functional impairment Progress Toward Problem(s) and Goals/Treatment Plan: Start: Haldol 5mg PO BID Cogentin 1mg PO BID atarax 50 mg. PRN Q6 Mertazipine 30 mg PO HS KONG Trazodone 100 mg PO HS KONG Attend groups and activities Individual therapy Psychoeducation and support Encourage compliance with meds and after care Refer to outpatient program Teach healthy lifestyle methods, i.e. diet, exercise, meditation Smoking cessation - Smoking Cessation Smoking Cessation Initiated: No
--- NOTE | 2017-08-01 11:20 | PCM.PYCHPN ---
Psychiatric Progress Note - Psychiatric Progress Note Patient seen today, length of contact: 16 min Patient Chief Complaint: "I slept okay last night" Problems Identified/Issues Discussed: The pt is seen, chart reviewed, case discussed with staff. Patient remained isolated, confined and withdrawn. She remained disorganized and internally preoccupied and still reports of hearing voices. Patient states the voices are male and female and are just "saying stuff" but would not elaborate on what they are saying. She still appears paranoid and delusional. She reports depressed mood and feelings of hopelessness and helplessness. She denies any suicidal ideation or homicidal ideation. The pt is compliant with medications and reports no side-effects. Symptoms are improving but needs more time to stabilize. Supportive therapy and psychoeducation were given. Medication Change: Yes (start Zoloft) Medical Record Reviewed: Yes Mental Status Examination - Cognitive Function Orientation: Person, Place Memory: Intact Attention: WNL Concentration: Poor Association: Loose Fund of Knowledge: WNL - Mood Mood: Depressed, Anxious - Affect Affect: Constricted, Depressed - Speech Speech: Appropriate - Formal Thought Process Formal Thought Process: Hallucinations, Delusions, Paranoia - Suicidal Ideation Suicidal Ideation: No - Homicidal Ideation Homicidal Ideation: No Goal/Treatment Plan - Goal/Treatment Plan Need for Continued Stay: Severe depression anxiety, Discharge may exacerbated symptoms, Severe functional impairment Progress Toward Problem(s) and Goals/Treatment Plan: Continue: Haldol 5mg PO BID Cogentin 1mg PO BID Atarax 50 mg. PRN Q6 Start Zoloft 50 mg PO Daily Mertazipine 30 mg PO HS KONG Trazodone 100 mg PO HS KONG Continue medications Support and psychoeducation daily Attend groups and activities daily After care planning by ERWIN D/C next week - Smoking Cessation Smoking Cessation Initiated: No
--- NOTE | 2017-08-02 10:21 | PCM.PYCHPN ---
Psychiatric Progress Note - Psychiatric Progress Note Patient seen today, length of contact: 16 min Patient Chief Complaint: "I am doing okay" Problems Identified/Issues Discussed: The pt is seen, chart reviewed, case discussed with staff. Patient remained isolated, confined and withdrawn, remaining in her own room most of the day. She remained disorganized and internally preoccupied and still reports of hearing voices. She still appears paranoid and delusional. She reports depressed mood and feelings of hopelessness and helplessness. She denies any suicidal ideation or homicidal ideation. The pt is compliant with medications and reports no side-effects. Symptoms are improving but needs more time to stabilize. Supportive therapy and psychoeducation were given. Medication Change: Yes (increase haldol) Medical Record Reviewed: Yes Mental Status Examination - Cognitive Function Orientation: Person, Place, Situation Memory: Intact Attention: WNL Concentration: Poor Association: Loose Fund of Knowledge: WNL - Mood Mood: Depressed, Anxious - Affect Affect: Constricted, Depressed - Speech Speech: Appropriate - Formal Thought Process Formal Thought Process: Hallucinations, Delusions, Paranoia - Suicidal Ideation Suicidal Ideation: No - Homicidal Ideation Homicidal Ideation: No Goal/Treatment Plan - Goal/Treatment Plan Need for Continued Stay: Severe depression anxiety, Discharge may exacerbated symptoms, Severe functional impairment Progress Toward Problem(s) and Goals/Treatment Plan: Continue: Haldol 10 mg PO BID Cogentin 1mg PO BID Atarax 50 mg. PRN Q6 Start Zoloft 50 mg PO Daily Mertazipine 30 mg PO HS KONG Trazodone 100 mg PO HS KONG Continue medications Support and psychoeducation daily Attend groups and activities daily After care planning by ERWIN D/C next week
--- NOTE | 2017-08-03 10:51 | PCM.PYCHPN ---
Psychiatric Progress Note - Psychiatric Progress Note Patient seen today, length of contact: 16 min Patient Chief Complaint: "I feel good" Problems Identified/Issues Discussed: The pt is seen, chart reviewed, case discussed with staff. Patient remained isolated, confined and withdrawn, remaining in her own room most of the day. She still appears paranoid and delusional. She denies any suicidal ideation or homicidal ideation. Patient slept through the night. The pt is compliant with medications and reports no side-effects. After care discussed, support and psychoeducation given. Symptoms are improving but needs more time to stabilize. Supportive therapy and psychoeducation were given. Medication Change: Yes (increase haldol) Medical Record Reviewed: Yes Mental Status Examination - Cognitive Function Orientation: Person, Place, Situation Memory: Intact Attention: WNL Concentration: Poor Association: Loose Fund of Knowledge: WNL - Mood Mood: Depressed, Anxious - Affect Affect: Constricted, Depressed - Speech Speech: Appropriate - Formal Thought Process Formal Thought Process: Hallucinations, Delusions, Paranoia - Suicidal Ideation Suicidal Ideation: No - Homicidal Ideation Homicidal Ideation: No Goal/Treatment Plan - Goal/Treatment Plan Need for Continued Stay: Severe depression anxiety, Discharge may exacerbated symptoms, Severe functional impairment Progress Toward Problem(s) and Goals/Treatment Plan: Continue: Haldol 10 mg PO BID Cogentin 1mg PO BID Atarax 50 mg. PRN Q6 Start Zoloft 50 mg PO Daily Mertazipine 30 mg PO HS KONG Trazodone 100 mg PO HS KONG Continue medications Support and psychoeducation daily Attend groups and activities daily After care planning by ERWIN D/Terell Sunday
[2017-08-05 09:11] VITALS: O2SAT 97
--- NOTE | 2017-08-06 10:23 | PCM.BM ---
<ElliIla - Last Filed: 08/06/17 10:22> Treatment Plan Problems - Problems identified on initial assessmt Depression Date Initiated: 07/30/17 Time Initiated: 00:05 Assessment reference: NA Status: Active Priority: 1 Suicidal Ideation Date Initiated: 07/30/17 (with plan: OD on alcohol) Time Initiated: 00:05 Assessment reference: NA Status: Active Priority: 2 Treatment assets and liabiliti Patient Assests: cooperative, self-reliant, ADL independent, physically healthy , good support system, negotiates basic needs Patient Liabilities: financial problems, relationship conflicts, substance abuse , other (Cognitive function; impaired) - Milieu Protocol Maintain good personal hygiene: daily Encourage regular showers, daily Remind patient to perform daily oral care Maintain personal safety: daily Educate patient to report safety concerns to staff (prn), other Monitor environment for contraband/sharps (q15min) Medication safety: Monitor for expected outcome, potential side effects: every shift, Assess barriers to learning: every shift, Assess readiness for medication education: every shift Milieu Narrative: Continue: Haldol 10 mg PO BID Cogentin 1mg PO BID Atarax 50 mg. PRN Q6 Start Zoloft 50 mg PO Daily Mertazipine 30 mg PO HS KONG Trazodone 100 mg PO HS KONG Continue medications Support and psychoeducation daily Attend groups and activities daily After care planning by ERWIN Coulter/Terell Sunday Family Contact Family involvement: Famliy/SO not involved - Goals for Treatment Patient goals for treatment: "I don't know." Discharge/Continuing Care - Education Needs Education Needs: Patient Medication, Patient Coping Skills, Patient Placement options, Patient Community resources - Discharge Discharge Criteria: Tolerates medication w/o severe side effects, No longer exhibiting s/s of withdrawal, Reduction of target symptoms Discharge to:: Jail - Treatment Team Participation Patient/Family/SO Statement: Continue: Haldol 10 mg PO BID Cogentin 1mg PO BID Atarax 50 mg. PRN Q6 Start Zoloft 50 mg PO Daily Mertazipine 30 mg PO HS KONG Trazodone 100 mg PO HS KONG Continue medications Support and psychoeducation daily Attend groups and activities daily After care planning by ERWIN Browning Sunday Discussed with Family/SO: No Was Patient/Family/SO present at Treatment Team Meeting: Yes Treatment Plan Review - Problem Depression Time Initiated: 00:05 Suicidal Ideation Time Initiated: 00:05 - Discharge / Continuing Care Discharge to:: Jail Behavioral Health Services: Partial hospital Health Needs: Medications/Rx, Alcohol/Drug treatment <Astrid Torres - Last Filed: 08/06/17 10:56> - Diagnosis (1) Schizophrenia Status: Acute Interventions: 08/06/17 10:56 * Assess/adjust medications daily and /or as needed * See patient on an individual basis 7x/week to assess status of hallucinations * Discuss risks, benefits, side effects and alternatives of medications * (2) Alcohol use disorder, severe, dependence Status: Acute Interventions: * Assess 7x/week regarding severity of withdrawal * Educate regarding risks, benefits, side effects and alternatives of medications * Use Motivational Interviewing for abstinence * Use CBT for relapse prevention * Medication management for withdrawal symptoms * Encourage medication assisted treatment * <Rosalia Hernandez - Last Filed: 08/06/17 13:34> Treatment Plan Review - Problem Depression Date Initiated: 08/06/17 Time Initiated: 13:33 Progress toward outcomes: improved Suicidal Ideation Date Initiated: 08/06/17 Time Initiated: 13:34 Progress toward outcomes: resolved
--- NOTE | 2017-08-06 10:56 | PCM.PYCHPN ---
Psychiatric Progress Note - Psychiatric Progress Note Patient seen today, length of contact: 16 min Patient Chief Complaint: "I feel fine" Problems Identified/Issues Discussed: The pt is seen, chart reviewed, case discussed with staff. Patient appears less paranoid and less delusional. However, she remained isolated, confined and withdrawn, remaining in her own room most of the day. She denies any suicidal ideation or homicidal ideation. She reports some improvement in the AH. Patient slept through the night. Has no complaints or questions. The pt is compliant with medications and reports no side-effects. After care discussed, support and psychoeducation given. Symptoms are improving but needs more time to stabilize. Supportive therapy and psychoeducation were given. Medication Change: Yes (increase zoloft) Medical Record Reviewed: Yes Mental Status Examination - Cognitive Function Orientation: Person, Place, Situation, Time Memory: Intact Attention: WNL Concentration: Poor Association: Loose Fund of Knowledge: WNL - Mood Mood: Depressed, Anxious - Affect Affect: Constricted, Depressed - Speech Speech: Appropriate - Formal Thought Process Formal Thought Process: Delusions, Paranoia - Suicidal Ideation Suicidal Ideation: No - Homicidal Ideation Homicidal Ideation: No Goal/Treatment Plan - Goal/Treatment Plan Need for Continued Stay: Severe depression anxiety, Discharge may exacerbated symptoms, Severe functional impairment Progress Toward Problem(s) and Goals/Treatment Plan: Continue: Haldol 10 mg PO BID Cogentin 1mg PO BID Atarax 50 mg. PRN Q6 Start Zoloft 100 mg PO Daily Mertazipine 30 mg PO HS KONG Trazodone 100 mg PO HS KONG Continue medications Support and psychoeducation daily Attend groups and activities daily After care planning by ERWIN not at [facility]-they denied her D/C likely tomorrow
[2017-08-07] MEDS ORDERED: Haloperidol Decanoate 100 mg/ml Inj IM ONE (10:29)
--- NOTE | 2017-08-07 10:29 | PCM.PYCHPN ---
Psychiatric Progress Note - Psychiatric Progress Note Patient seen today, length of contact: 15 min Patient Chief Complaint: "People keep messing with me" Problems Identified/Issues Discussed: The pt is seen, chart reviewed, case discussed with staff. The pt is compliant with medications and reports no side-effects. The patient reports return of command type auditory hallucinations telling her to hurt herself. She denies SI or visual hallucinations After care discussed, support and psychoeducation given. Medication Change: Yes (haldol decanoate) Medical Record Reviewed: Yes Mental Status Examination - Cognitive Function Orientation: Person, Place, Situation, Time Memory: Intact Attention: WNL Concentration: Poor Association: Loose Fund of Knowledge: WNL - Mood Mood: Depressed, Anxious - Affect Affect: Constricted, Depressed - Speech Speech: Appropriate - Formal Thought Process Formal Thought Process: Delusions, Paranoia - Suicidal Ideation Suicidal Ideation: No - Homicidal Ideation Homicidal Ideation: No Goal/Treatment Plan - Goal/Treatment Plan Need for Continued Stay: Severe depression anxiety, Discharge may exacerbated symptoms, Severe functional impairment Progress Toward Problem(s) and Goals/Treatment Plan: Continue: Haldol decanoate 100 mg I/M stat Haldol 10 mg bid Cogentin 1mg PO BID Atarax 50 mg PRN Q6 Start Zoloft 200 mg PO Daily Mertazipine 30 mg PO HS KONG Trazodone 100 mg PO HS KONG Continue medications Support and psychoeducation daily Attend groups and activities daily After care planning by ERWIN baker at [facility]-they denied her, will send home to family D/C likely tomorrow
[2017-08-08] MEDS ORDERED: Haloperidol Decanoate 100 mg/ml Inj IM ONE ×2 (10:00→14:30)
--- NOTE | 2017-08-08 11:43 | PCM.PYCHPN ---
Psychiatric Progress Note - Psychiatric Progress Note Patient seen today, length of contact: 15 min Patient Chief Complaint: "People keep messing with me" Problems Identified/Issues Discussed: The pt is seen, chart reviewed, case discussed with staff. The pt is compliant with medications and reports no side-effects. The patient reports return of command type auditory hallucinations telling her to hurt herself. She denies SI or visual hallucinations After care discussed, support and psychoeducation given. Medication Change: Yes (haldol decanoate) Medical Record Reviewed: Yes Mental Status Examination - Cognitive Function Orientation: Person, Place, Situation, Time Memory: Intact Attention: WNL Concentration: Poor Association: Loose Fund of Knowledge: WNL - Mood Mood: Depressed, Anxious - Affect Affect: Constricted, Depressed - Speech Speech: Appropriate - Formal Thought Process Formal Thought Process: Delusions, Paranoia - Suicidal Ideation Suicidal Ideation: No - Homicidal Ideation Homicidal Ideation: No Goal/Treatment Plan - Goal/Treatment Plan Need for Continued Stay: Severe depression anxiety, Discharge may exacerbated symptoms, Severe functional impairment Progress Toward Problem(s) and Goals/Treatment Plan: Continue: Haldol decanoate 100 mg I/M stat Haldol 10 mg bid Cogentin 1mg PO BID Atarax 50 mg PRN Q6 Start Zoloft 200 mg PO Daily Mertazipine 30 mg PO HS KONG Trazodone 100 mg PO HS KONG Continue medications Support and psychoeducation daily Attend groups and activities daily After care planning by ERWIN baker at [facility]-they denied her, will send home to family D/C likely tomorrow
[2017-08-09 06:10] VITALS: BP 120/83; PULSE 73; RESP 16; TEMP 98.5
--- NOTE | 2017-08-09 10:12 | PCM.PYCHDC ---
Mental Status Examination - Mental Status Examination Orientation: Person, Place, Situation, Time Memory: Intact Mood: Neutral Affect: Constricted Speech: Soft Attention: WNL Concentration: WNL Association: WNL Fund of Knowledge: WNL Formal Thought Process: No Impairment Description of patient's judgement and insight: good, fair Psychotic Thoughts and Behaviors: denies any AVH Suicidal Ideation: No Current Homicidal Ideation?: No Discharge Summary - Discharge Note Reason for Hospitalization: Patient is a 31 years old, single, unemployed, -Vietnamese female, with history of schizoaffective disorder depressive type, follow-up at [facility] was admitted due to worsening symptoms of depression and suicidal ideations without plan. She currently presents with suicidal ideations and auditory hallucinations that tell her to harm and kill herself. Patient was last seen on 06/21/2017. During that admission patient reported suicidal ideation and depression with no plan. Later, Patient was reported to have changed her story and report plan to overdose using heroin. Patent's BAL was 31. Patient denied auditory/ visual hallucinations. Patient has history of alcohol use, heroin use and marijuana use. It was recommended that patient attend [facility] outpatient, however, Patient does not participate in the program. Patient has history of being prescirbed haldol. After latest discharge patient stated she began drinking again. She initially reports that she drinks 4 shots a day but later said she drinks 2 pints a day. Denied using any other drugs including cocaine, cannabis or heroin. Patient was born in [place], has ninth grade of education. Not working. Never . Has one, one month for child. Patient's sister has custody of patient's son. Lives alone. Height is 5 feet 5 inches and weight is 180 pounds. Technical Applications Scientist contacted Patient's grandmother who was very annoyed by phone call. Patient's grandmother stated "she's playing you all. Juneaq is drinking. She left her mother's where she had a place to stay. She won't do the right thing and right now there is no hope for her. She's using the system because she does' t want to do the right thing." Patient stated she was kicked out of her mother' s house by her mother because her mother was fighting with her boyfriend. Patient's grandmother refused to provide contact information for additional information from Patient's mother or sister, Amina. Patient's grandmother noted that Patient knows the contact number and turn down worker should deal directly with Shana. Patient is a poor historian as noted by disorganized thoughts. Consultations:: List each consultation separately and include: 1. Reason for request. 2. Findings. 3. Follow-up Summary of Hospital Course include:: 1. Description of specific treatment plan utilized for patients during their course of treatmen. 2. Summarize the time- course for resolution of acute symptoms and/or regressed behaviors. 3. Describe issues identified and worked on during hospitalization. 4. Describe medication utilized. 5. Describe medical problems identified and treated. 6. Reassessment of suicide risk Summary of Hospital Course: During the course of her stay, patient (pt) started progressively improving and she no longer remained irritable, depressed, paranoid and suicidal. Her mood and paranoia were improved and she started attending groups and meetings and started socializing. Patient denied any feelings of hopelessness, helplessness, and worthlessness, denied any problem with the sleep or appetite, denied suicidal ideation or homicidal ideation. Pt denied any auditory or visual hallucinations. Some changes were made in her current medications and patient was discharged on following medications. She tolerated these medications very well and denied any side effects. She was discharged with a plan to f/u with [facility]. - Diagnosis (1) Schizophrenia Status: Acute (2) Alcohol use disorder, severe, dependence Status: Acute - Final Diagnosis (DSM 5) Condition upon Discharge: STABLE DSM 5: Schizoeffective disorder depressive type Disposition: HOME/ ROUTINE Follow-up Treatment Plan: Education: Pt was educated and counseled about the risks and benefits of taking and not taking medications. Pt was educated and counseled about the risks of drinking and abusing drugs. Pt was educated and counseled to go to the ER or call 911 if pt develop suicidal ideation or homicidal ideation, worsening of symptoms or severe side effects of the meds. Prescriptions/Medication Reconciliation: Benztropine [Cogentin] 1 mg PO BID #60 tab Haloperidol [Haldol] 10 mg PO BID #60 tab Mirtazapine [Remeron] 30 mg PO HS #30 tab Sertraline [Zoloft] 100 mg PO DAILY #60 tab traZODone [Desyrel] 100 mg PO HS PRN #30 tab PRN Reason: Insomnia - Smoking Cessation Smoking Cessation Medication prescribed: No - Antipsychotic Medications Pt discharged on 2 or more routine antipsychotic medications: No
== END 2017-08-09 12:15 | disposition home or self-care (01) | DRG 430 ==
LOC: C.ER 20:53 → C.9E 22:42 → C.5E 22:59
PROVIDERS: ADMIT Psychiatry & Neurology Psychiatry; ATTEND Psychiatry & Neurology Psychiatry
PROC: GZHZZZZ Group Psychotherapy (ICD-10-PCS; principal; 2017-07-29)
PROC: GZ56ZZZ Individual Psychotherapy, Supportive (ICD-10-PCS; 2017-07-29)
DX: F25.1 Schizoaffective disorder, depressive type (principal); R45.851 Suicidal ideations; I10 Essential (primary) hypertension; F10.20 Alcohol dependence, uncomplicated; J45.909 Unspecified asthma, uncomplicated; F31.9 Bipolar disorder, unspecified; F17.210 Nicotine dependence, cigarettes, uncomplicated; F41.8 Other specified anxiety disorders; G47.00 Insomnia, unspecified; Y90.0 Blood alcohol level of less than 20 mg/100 ml

== ENCOUNTER 2017-10-06 01:43 | Emergency (ER) | payer MEDICAID ==
[2017-10-06 01:43] VITALS: BMI 33.2
--- NOTE | 2017-10-06 02:25 | C.PDOC ---
Addendum entered and electronically signed by Jyoti Stanley PA-C 10/06/17 09 :39: Addendum Addendum: 10/06/17 07:10 Call RADHA Trevino to evaluated patient for psych 10/06/17 08:15 Belinda states she will call Dr Torres to discuss case. Patient is sober and states she is not suicidal. 10/06/17 09:38 Dr Torres calls back and states patient is appropriate for discharge. She is well known to psych unit and is no threat or harm to herself. Original Note: History Of Present Illness 31 year old female presents to the ER stating she has suicidal ideation. Patient denies any plan but notes she was drinking a lot yesterday and thought she would from it. Time Seen by Provider: 10/06/17 01:52 Chief Complaint (Nursing): Psychiatric Evaluation History Per: Patient History/Exam Limitations: no limitations Onset/Duration Of Symptoms: Days Current Symptoms Are (Timing): Still Present Suicide/Self Injury Attempted (Context): None Associated Symptoms: Suicidal Thoughts. denies: Suicidal Plan Involuntary Hold By: None Recent travel outside of the [place]: No Past Medical History Reviewed: Historical Data, Nursing Documentation, Vital Signs Vital Signs: Last Vital Signs Temp 97.9 F 10/06/17 01:44 Pulse 87 10/06/17 01:44 Resp 16 10/06/17 01:44 BP 115/79 10/06/17 01:44 Pulse Ox 99 10/06/17 06:01 - Medical History PMH: Anemia, Anxiety, Asthma, Bipolar Disorder, Depression, HTN (NO MEDS PER PT) , Schizophrenia Surgical History: - [facility] Procedures CERVICAL LES DESTRUC NEC (04/28/02) GROUP PSYCHOTHERAPY (07/29/17) INDIVIDUAL PSYCHOTHERAPY, COGNITIVE-BEHAVIORAL (05/07/17) INDIVIDUAL PSYCHOTHERAPY, SUPPORTIVE (07/29/17) INJECT/INFUSE NEC (07/14/14) MEDICATION MANAGEMENT (07/23/16) PSYCHIA INTERV/EVAL NEC (05/27/14) VACUUM EXT DEL W EPISIOT (11/04/01) Family History: States: Unknown Family Hx - Social History Hx Tobacco Use: Yes Hx Alcohol Use: Yes Hx Substance Use: No - Immunization History Hx Tetanus Toxoid Vaccination: No Hx Influenza Vaccination: No Hx Pneumococcal Vaccination: No Review Of Systems Constitutional: Negative for: Fever, Chills Gastrointestinal: Negative for: Nausea, Vomiting, Diarrhea Psych: Positive for: Suicidal ideation Physical Exam - Physical Exam Appears: Non-toxic, No Acute Distress Skin: Normal Color, Warm, Dry Head: Atraumatic, Normacephalic Eye(s): bilateral: Normal Inspection Oral Mucosa: Moist Chest: Symmetrical, No Tenderness Cardiovascular: Rhythm Regular Respiratory: Normal Breath Sounds, No Rales, No Rhonchi, No Wheezing Gastrointestinal/Abdominal: Soft, No Tenderness Neurological/Psych: Oriented x3, Normal Speech ED Course And Treatment - Laboratory Results Result Diagrams: 10/06/17 03:44 10/06/17 03:44 O2 Sat by Pulse Oximetry: 99 (Room air) Pulse Ox Interpretation: Normal Progress Note: Blood work and urinalysis ordered. Patient placed on 1 to 1 and crisis will evaluate patient. Patient is medically cleared for psych evaluation. vineyard worker evaluation pending. Disposition - Disposition Disposition Time: 07:00 Condition: STABLE Forms: [id number] (Lebanese) - Clinical Impression Clinical Impression: Depression, Suicidal ideation - PA / NIGHT CLEANER / Resident Statement MD/DO has reviewed & agrees with the documentation as recorded. - Scribe Statement The provider has reviewed the documentation as recorded by the Scribe Sterling Walton All medical record entries made by the Scribe were at my direction and personally dictated by me. I have reviewed the chart and agree that the record accurately reflects my personal performance of the history, physical exam, medical decision making, and the department course for this patient. I have also personally directed, reviewed, and agree with the discharge instructions and disposition. Physician Patient Turnover Patient Signed Over To: Jyoti Stanley Handoff Comments: pending crisis evaluation and dispo Decision To Admit - . Patient Diagnosis: Depression, Suicidal ideation
[2017-10-06 03:48] LABS: BASO # 0.1 K/uL (0.0-0.2); EOS # 0.1 K/uL (0.0-0.7); HEMOGLOBIN 10.5 g/dL (11.0-16.0); MEAN CORPUSCULAR HEMOGLOBIN 24.1 pg (27.0-31.0); MONO # 0.4 K/uL (0.0-0.8)
[2017-10-06 03:52] LABS: BASO % 0.9 % (0.0-2.0); EOS % 0.9 % (0.0-4.0); LYMPH # 2.9 K/uL (1.0-4.3); LYMPH % 32.4 % (20.0-40.0); MEAN CELL VOLUME 73.5 fL (81.0-99.0); MEAN CORPUSCULAR HGB CONC 32.8 g/dL (33.0-37.0); MEAN PLATELET VOLUME 7.5 fL (7.2-11.7); NEUT # 5.4 K/uL (1.8-7.0); NEUT % 60.8 % (50.0-75.0); NRBC % 0.1 % (0.0-2.0); RBC 4.37 Mil/uL (3.80-5.20); RED CELL DISTRIBUTION WIDTH 22.4 % (11.5-14.5); WHITE BLOOD COUNT 8.9 K/uL (4.8-10.8)
[2017-10-06 03:55] LABS: HCG,QUALITATIVE URINE NEGATIVE (NEGATIVE)
[2017-10-06 03:59] LABS: SQUAMOUS EPITHIAL 13 /hpf (0-5); URINE BILIRUBIN NEGATIVE (NEGATIVE); URINE BLOOD NEGATIVE (NEGATIVE); URINE CLARITY Hazy (Clear); URINE COLOR Yellow (YELLOW); URINE GLUCOSE (UA) NORMAL (Normal); URINE LEUKOCYTE ESTERASE NEG Leu/uL (Negative); URINE NITRATE NEGATIVE (NEGATIVE); URINE PROTEIN NEGATIVE (NEGATIVE); URINE UROBILINOGEN NORMAL mg/dL (0.2-1.0)
[2017-10-06 04:02] LABS: ALB/GLOB RATIO 1.2 (1.0-2.1); ALBUMIN 3.6 g/dL (3.5-5.0); ALT/SGPT 13 U/L (9-52); AST/SGOT 16 U/L (14-36); BLOOD UREA NITROGEN 3 mg/dL (7-17); CALCIUM 8.2 mg/dl (8.6-10.4); GFR AFRICAN-AMERICAN > 60; GFR NON-AFRICAN AMERICAN > 60
[2017-10-06 04:15] LABS: BARBITURATES, UR NEGATIVE (NEGATIVE); BENZODIAZEPINES, UR NEGATIVE (NEGATIVE); OPIATES, UR NEGATIVE (NEGATIVE); PHENCYCLIDINE, UR NEGATIVE (NEGATIVE)
[2017-10-06 06:43] VITALS: TEMP 98.9
[2017-10-06 07:34] VITALS: O2SAT 98
[2017-10-06 09:32] VITALS: BP 123/61; PULSE 68; RESP 16
== END 2017-10-06 09:38 | disposition home or self-care (01) ==
LOC: C.ER 01:43
DX: F32.9 Major depressive disorder, single episode, unspecified (principal); R45.851 Suicidal ideations

== ENCOUNTER 2018-07-29 18:39 | Emergency (ER) | payer MEDICAID ==
[2018-07-29 18:39] VITALS: BMI 33.2
[2018-07-29 18:50] VITALS: BP 174/90; PULSE 76; RESP 17; TEMP 97.8; O2SAT 100
--- NOTE | 2018-07-29 19:18 | C.PDOC ---
Time Seen by Provider: 07/29/18 19:18 Chief Complaint (Nursing): Abdominal Pain Past Medical History Vital Signs: Last Vital Signs Temp 97.8 F 07/29/18 18:46 Pulse 76 07/29/18 18:46 Resp 17 07/29/18 18:46 BP 174/90 H 07/29/18 18:46 Pulse Ox 100 07/29/18 18:46 - Medical History PMH: Anemia, Anxiety, Asthma, Bipolar Disorder, Depression, HTN (NO MEDS PER PT), Schizophrenia Denies: Diabetes, Hepatitis, HIV, Chronic Kidney Disease, Seizures, Sexually Transmitted Disease Surgical History: - [facility] Procedures CERVICAL LES DESTRUC NEC (04/28/02) GROUP PSYCHOTHERAPY (07/29/17) INDIVIDUAL PSYCHOTHERAPY, COGNITIVE-BEHAVIORAL (05/07/17) INDIVIDUAL PSYCHOTHERAPY, SUPPORTIVE (07/29/17) INJECT/INFUSE NEC (07/14/14) MEDICATION MANAGEMENT (07/23/16) PSYCHIA INTERV/EVAL NEC (05/27/14) VACUUM EXT DEL W EPISIOT (11/04/01) Family History: States: Unknown Family Hx - Social History Hx Tobacco Use: Yes Hx Alcohol Use: Yes Hx Substance Use: No - Immunization History Hx Tetanus Toxoid Vaccination: No Hx Influenza Vaccination: No Hx Pneumococcal Vaccination: No ED Course And Treatment O2 Sat by Pulse Oximetry: 100 Pulse Ox Interpretation: Normal Disposition Counseled Patient/Family Regarding: Studies Performed, Diagnosis - Disposition Disposition Time: 19:18
== END 2018-07-29 19:18 | disposition left against medical advice (07) ==
LOC: C.ER 18:39
DX: Z02.89 Encounter for other administrative examinations (principal); R10.9 Unspecified abdominal pain

== ENCOUNTER → 2018-07-29 20:41 | Emergency (ER) | payer MEDICAID ==
[2018-07-29 20:41] VITALS: BMI 33.2
== END | disposition left against medical advice (07) ==
LOC: C.ER 20:41
DX: Z02.89 Encounter for other administrative examinations (principal); R10.9 Unspecified abdominal pain